=== PATIENT | female | born 2000 | race African-American/Black ===

== ENCOUNTER 2019-03-26 09:12 | Emergency (ER) | payer OTHER ==
[2019-03-26] MEDS ORDERED: ALBUTEROL NEBULIZED 2.5 MG/3 ML INHALATION STA (09:22)
[2019-03-26] MEDS ORDERED: predniSONE 20 MG TAB PO STA (09:22)
[2019-03-26] MEDS ORDERED: ALBUTEROL NEBULIZED (CONC) 5 MG, SODIUM CHLORIDE 0.9% NEBULIZ 3 ML INHALATION STA ×2 (09:30)
[2019-03-26] MEDS ORDERED: ACETAMINOPHEN TAB 325 MG TAB PO STA (09:30)
[2019-03-26] MEDS ORDERED: SODIUM CHLORIDE 0.9% 1,000 ML IV ONE (09:30)
--- NOTE | 2019-03-26 10:12 | XR ---
EXAMINATION TYPE: XR chest 2V DATE OF EXAM ORDERED: 03/26/2019 HISTORY: URI symptoms asthma. REFERENCE: None. FINDINGS: The lungs are clear. Pleural spaces are clear. Heart size is normal. IMPRESSION: NORMAL CHEST.
--- NOTE | 2019-03-26 11:19 | ED ---
General Adult HPI - General Chief complaint: Shortness of Breath Stated complaint: Sob Time Seen by Provider: 03/26/19 09:22 Source: patient Mode of arrival: ambulatory - History of Present Illness Initial comments: 19-year-old female with history of asthma presenting for 1 day of sore throat cough fever. Patient states she has flulike symptoms for one day she states she has had a fever cough sore throat. Patient states when she coughs hard she has pain in her chest. Patient denies any pain in the chest with absence of cough. Patient denies any wheezing but states she has some slight shortness of breath she states she is not sure if this is aggravating her asthma which she has no history of. Patient states she does not have a home inhaler. Patient denies any leg swelling she denies , denies neck stiffness, headache or photophobia. Patient states she recently traveled to [place] via personal vehicle, driving no further than 1 hour. Patient denies hx DVT/PE, hx of cancer, history of exogenous hormone use or history of asplenia. Patient denies diarrhea, abdominal pain or vomiting. Patient denies hemoptysis. Remaining ROS (-) Upon arrival patient appears well, feels warm to touch and is febrile. HR noted to be elevated. - Related Data Previous Rx's Medication Instructions Recorded Azithromycin [Zithromax Z-pack] 0 mg PO DIRECTED #6 tab 03/26/19 predniSONE 20 mg PO DAILY 4 Days #4 tab 03/26/19 Allergies Allergy/AdvReac Type Severity Reaction Status Date / Time No Known Allergies Allergy Verified 03/26/19 11:32 Review of Systems ROS Statement: Those systems with pertinent positive or pertinent negative responses have been documented in the HPI. ROS Other: All systems not noted in ROS Statement are negative. Past Medical History Past Medical History: Asthma History of Any Multi-Drug Resistant Organisms: None Reported Past Surgical History: No Surgical Hx Reported Past Psychological History: No Psychological Hx Reported Smoking Status: Never smoker Past Alcohol Use History: Rare Past Drug Use History: None Reported General Exam - General Exam Comments Initial Comments: General: The patient is awake and alert, in no distress, and does not appear acutely ill. Eye: +3 mm pupils are equal, round and reactive to light, extra-ocular movements are intact. No nystagmus. There is normal conjunctiva bilaterally. No signs of icterus. No photophobia Ears, nose, mouth and throat: There are moist mucous membranes and no oral lesions. Oropharynx was not erythematous there is no tonsillar enlargement exudates or lesions. Uvula midline. Tympanic membranes are not erythematous or is no effusions bulging or retraction. No tenderness to palpation of the mastoid. No anterior cervical lymphadenopathy. Rhinorrhea, clear and bilateral nares. No tripoding, no drooling. Neck: The neck is supple, there is no tenderness or JVD. No nuchal rigidity Cardiovascular: There is a regular rate and rhythm. No murmur, rub or gallop is appreciated. Respiratory: Lungs are clear to auscultation, respirations are non-labored, breath sounds are equal. No wheezes, stridor, rales, or rhonchi. No re tractions or abdominal breathing. Gastrointestinal: Soft, non-distended, non-tender abdomen without masses or organomegaly noted. There is no rebound or guarding present. Bowel sounds are unremarkable. Musculoskeletal: Normal ROM, no tenderness. Strength 5/5. Sensation intact. Radial pulses equal bilaterally 2+. Neurological: A&O x 3. CN II-XII intact grossly, There are no obvious motor or sensory deficits. Coordination appears grossly intact. Speech appears normal, no muffling. Skin: Skin is warm and dry and no rashes or lesions are noted. No extremity edema Psychiatric: Cooperative Course Vital Signs 03/26/19 03/26/19 03/26/19 09:15 10:02 10:04 Temperature 99.2 F 99.1 F Pulse Rate 115 H 72 Respiratory 18 Rate Blood Pressure 137/89 O2 Sat by Pulse 98 Oximetry 03/26/19 03/26/19 03/26/19 10:12 10:37 12:09 Temperature 99.4 F Pulse Rate 72 119 H 92 Respiratory 22 18 Rate Blood Pressure 124/70 110/68 O2 Sat by Pulse 100 100 Oximetry 03/26/19 13:51 Temperature 98.7 F Pulse Rate 108 H Respiratory 16 Rate Blood Pressure 113/79 O2 Sat by Pulse Oximetry EKG Findings - EKG Comments: EKG Findings:: Ventricular rate of 11 beats minute, DE interval 126 ms, QRS ratio 86 ms, QT/QTC 322/437 ms. This is sinus tachycardia with nonspecific T- wave abnormality. No ST elevation noted. EKG was person interpreted and reviewed by my attending provider Dr. Szymanski Medical Decision Making - Medical Decision Making Well-appearing 19-year-old female presenting for cough congestion sore throat shortness of breath. Patient has history of asthma. Patient has slightly diminished air movement on exam no significant wheezing on inspiration nor expiration. Patient does not appears overtly short of breath. Patient oropharynx is mildly erythematous. Uvula midline. No exudates, rapid strep (-). CXR clear of focal exudates, obvious upper respiratory symptoms on exam including a dry cough. Patient EKG nonspecific findings. No chest pain at rest. Troponin (-). Patient has no signs of fluid overload or murmu on exam. Dimer WNL. Mild leukocytosis. Patient upon reevaluation is stating she is feelign better reques ting discharge. I feel at this time most likely ddx is upper repsiratory infection. Patient will be discharged with oral steroids. Patient discharged appearing well, nontoxic after discussing case and reviewing laboratory studies/EKG with my attending provider. I did give patient follow up primary c are provider in 24-48 hours patient verbalized understanding. I was not notified of elevated HR of 108 on discharge. - Lab Data Result diagrams: 03/26/19 09:45 03/26/19 09:45 Lab Results 03/26/19 03/26/19 03/26/19 Range/Units 09:45 09:45 09:45 WBC 12.9 H (4.0-11.0) k/uL RBC 5.17 (3.80-5.40) m/uL Hgb 15.5 (11.4-16.0) gm/dL Hct 43.5 (34.0-46.0) % MCV 84.1 (80.0-100.0) fL MCH 30.0 (25.0-35.0) pg MCHC 35.7 (31.0-37.0) g/dL RDW 12.9 (11.5-15.5) % Plt Count 283 (150-450) k/uL Neutrophils % 80 % Lymphocytes % 9 % Monocytes % 7 % Eosinophils % 2 % Basophils % 0 % Neutrophils # 10.4 H (1.3-7.7) k/uL Lymphocytes # 1.2 (1.0-4.8) k/uL Monocytes # 1.0 (0-1.0) k/uL Eosinophils # 0.2 (0-0.7) k/uL Basophils # 0.1 (0-0.2) k/uL D-Dimer (<0.60) mg/L FEU Sodium (137-145) mmol/L Potassium (3.5-5.1) mmol/L Chloride (98-107) mmol/L Carbon Dioxide (22-30) mmol/L Anion Gap mmol/L BUN (7-17) mg/dL Creatinine (0.52-1.04) mg/dL Est GFR (CKD-EPI)AfAm (>60 ml/min/1.73 sqM) Est GFR (CKD-EPI)NonAf (>60 ml/min/1.73 sqM) Glucose (74-99) mg/dL Calcium (8.4-10.2) mg/dL Total Bilirubin (0.2-1.3) mg/dL AST (14-36) U/L ALT (9-52) U/L Alkaline Phosphatase (38-126) U/L Troponin I (0.000-0.034) ng/mL Total Protein (6.3-8.2) g/dL Albumin (3.5-5.0) g/dL Influenza Type A RNA Not Detected (Not Detectd) Influenza Type B (PCR) Not Detected (Not Detectd) Group A Strep Rapid Negative (Negative) 03/26/19 03/26/19 03/26/19 Range/Units 09:45 09:45 12:30 WBC (4.0-11.0) k/uL RBC (3.80-5.40) m/uL Hgb (11.4-16.0) gm/dL Hct (34.0-46.0) % MCV (80.0-100.0) fL MCH (25.0-35.0) pg MCHC (31.0-37.0) g/dL RDW (11.5-15.5) % Plt Count (150-450) k/uL Neutrophils % % Lymphocytes % % Monocytes % % Eosinophils % % Basophils % % Neutrophils # (1.3-7.7) k/uL Lymphocytes # (1.0-4.8) k/uL Monocytes # (0-1.0) k/uL Eosinophils # (0-0.7) k/uL Basophils # (0-0.2) k/uL D-Dimer 0.33 (<0.60) mg/L FEU Sodium 143 (137-145) mmol/L Potassium 3.8 (3.5-5.1) mmol/L Chloride 107 (98-107) mmol/L Carbon Dioxide 22 (22-30) mmol/L Anion Gap 14 mmol/L BUN 9 (7-17) mg/dL Creatinine 0.72 (0.52-1.04) mg/dL Est GFR (CKD-EPI)AfAm >90 (>60 ml/min/1.73 sqM) Est GFR (CKD-EPI)NonAf >90 (>60 ml/min/1.73 sqM) Glucose 85 (74-99) mg/dL Calcium 10.2 (8.4-10.2) mg/dL Total Bilirubin 0.7 (0.2-1.3) mg/dL AST 30 (14-36) U/L ALT 22 (9-52) U/L Alkaline Phosphatase 110 (38-126) U/L Troponin I <0.012 (0.000-0.034) ng/mL Total Protein 8.0 (6.3-8.2) g/dL Albumin 5.0 (3.5-5.0) g/dL Influenza Type A RNA (Not Detectd) Influenza Type B (PCR) (Not Detectd) Group A Strep Rapid (Negative) Disposition Clinical Impression: Upper respiratory infection, Cough, Fever Disposition: HOME SELF-CARE Condition: Good Instructions (If sedation given, give patient instructions): Upper Respiratory Infection (ED) Additional Instructions: Please use medication as discussed. Please follow-up with family doctor in the next 2 days.. Please return to emergency room if the symptoms increase or worsen or for any other concerns. Prescriptions: predniSONE 20 mg PO DAILY 4 Days #4 tab Azithromycin [Zithromax Z-pack] 0 mg PO DIRECTED #6 tab Is patient prescribed a controlled substance at d/c from ED?: No Referrals: None,Stated [Primary Care Provider] - 1-2 days Time of Disposition: 13:36
[2019-03-26] MEDS ORDERED: KETOROLAC 30 MG/ML 1 ML VIAL IVP STA (11:44)
[2019-03-26 11:51] LABS: Basophils # (A) 0.1 k/uL (0-0.2); Basophils % (A) 0 %; Eosinophils # (A) 0.2 k/uL (0-0.7); Eosinophils % (A) 2 %; HCT 43.5 % (34.0-46.0); HGB 15.5 gm/dL (11.4-16.0); Lymphocytes # (A) 1.2 k/uL (1.0-4.8); Lymphocytes % (A) 9 %; MCHC 35.7 g/dL (31.0-37.0); MCV 84.1 fL (80.0-100.0); Mean Platelet Volume 6.3; Monocytes % (A) 7 %; Neutrophils # (A) 10.4 k/uL (1.3-7.7); Neutrophils % (A) 80 %; Platelet Count 283 k/uL (150-450); RBC 5.17 m/uL (3.80-5.40); RDW 12.9 % (11.5-15.5); WBC 12.9 k/uL (4.0-11.0)
[2019-03-26 11:56] LABS: ALT 22 U/L (9-52); AST 30 U/L (14-36); African American GFR (CKD) >90 (>60 ml/min/1.73 sqM); Alkaline Phosphatase 110 U/L (38-126); Anion Gap 14 mmol/L; Blood Urea Nitrogen 9 mg/dL (7-17); Calcium 10.2 mg/dL (8.4-10.2); Carbon Dioxide 22 mmol/L (22-30); Chloride 107 mmol/L (98-107); Glucose 85 mg/dL (74-99); Potassium 3.8 mmol/L (3.5-5.1); Sodium 143 mmol/L (137-145); Total Bilirubin 0.7 mg/dL (0.2-1.3)
[2019-03-26 13:53] VITALS: BP 113/79; PULSE 108; RESP 16; TEMP 98.7
== END 2019-03-26 13:51 | disposition home or self-care (01) ==
LOC: EC 09:12
DX: J06.9 Acute upper respiratory infection, unspecified (principal); D72.829 Elevated white blood cell count, unspecified; Z87.09 Personal history of other diseases of the respiratory system
CPT/HCPCS: 36415; 94640; 93005; 85379; 80053; 84484; 85025; 87081; 87430; 87502; 71046; 99285; 96374; 96361 ×4; J1885; J7512

== ENCOUNTER 2020-03-05 03:55 | Emergency (ER) | payer OTHER ==
[2020-03-05 04:23] VITALS: BP 141/96; RESP 18; TEMP 98.5
--- NOTE | 2020-03-05 04:27 | ED ---
Asthma HPI - General Stated Complaint: ANAY Time Seen by Provider: 03/05/20 04:19 Source: patient Mode of arrival: ambulatory - History of Present Illness Initial Comments: Kely is a 20-year-old female with a history of asthma who presents the ER today for evaluation of wheezing and shortness of breath. Patient reports that she hasn't required treatment for her asthma since middle school however over the past few days she feels that she is wheezing can catch her breath. She denies any fever or cough. She denies any known exposure COVID 19. Does not have an inhaler or breathing treatments at home which prompted her to come to ER for treatment. - Related Data Previous Rx's Medication Instructions Recorded Azithromycin [Zithromax Z-pack] 0 mg PO DIRECTED #6 tab 03/26/19 predniSONE [Deltasone] 20 mg PO DAILY 4 Days #4 tab 03/26/19 Albuterol Inhaler [Ventolin Hfa 1 puff INHALATION RT-TID #1 unit 03/05/20 Inhaler] Allergies Allergy/AdvReac Type Severity Reaction Status Date / Time No Known Allergies Allergy Verified 03/26/19 11:32 Review of Systems ROS Statement: Those systems with pertinent positive or pertinent negative responses have been documented in the HPI. ROS Other: All systems not noted in ROS Statement are negative. Past Medical History Past Medical History: Asthma History of Any Multi-Drug Resistant Organisms: None Reported Past Surgical History: No Surgical Hx Reported Past Psychological History: No Psychological Hx Reported Smoking Status: Vaper Past Alcohol Use History: Occasional Past Drug Use History: None Reported General Exam - General Exam Comments Initial Comments: Physical Exam GENERAL: Patient is well-developed and well-nourished. Patient is nontoxic and well- hydrated and is in no distress. HENT: Normocephalic, Atraumatic. EYES: PERRL, EOMI PULMONARY: Mild expiratory wheezing more pronounced on right than left CARDIOVASCULAR: There is a regular rate and rhythm without any murmurs gallops or rubs. ABDOMEN: Soft and nontender with normal bowel sounds. SKIN: Skin is clear with no lesions or rashes and otherwise unremarkable. : Deferred NEUROLOGIC: Patient is alert and oriented x3. Moving all extremities spontaneously MUSCULOSKELETAL: Normal extremities with adequate strength and full range of motion. No lower extremity swelling or edema. No calf tenderness. PSYCHIATRIC: Normal psychiatric evaluation. Course Vital Signs 03/05/20 03/05/20 03/05/20 04:17 05:08 05:21 Temperature 98.5 F Pulse Rate 71 85 85 Respiratory 18 Rate Blood Pressure 141/96 O2 Sat by Pulse 100 Oximetry Medical Decision Making - Medical Decision Making Patient was seen and evaluated history is obtained from the patient Breathing treatment was ordered and administered Chest x-ray was obtained and was negative for any acute pathology Until the 19th swab was ordered patient was advised that she will receive notification if it is positive Disposition Clinical Impression: Asthma Disposition: HOME SELF-CARE Condition: Stable Instructions (If sedation given, give patient instructions): Asthma (ED) Additional Instructions: Your COVID 19 test should result in 3-5 days Return to the ER if you have any worsening shortness of breath or new symptoms Prescriptions: Albuterol Inhaler [Ventolin Hfa Inhaler] 1 puff INHALATION RT-TID #1 unit Is patient prescribed a controlled substance at d/c from ED?: No Referrals: None,Stated [Primary Care Provider] - 1-2 days
[2020-03-05] MEDS ORDERED: ALBUTEROL NEBULIZED 2.5 MG/3 ML INHALATION STA (04:32)
[2020-03-05 05:11] VITALS: PULSE 85
--- NOTE | 2020-03-05 05:11 | XR ---
EXAMINATION TYPE: XR chest 2V DATE OF EXAM: 03/05/2020 COMPARISON: 03/18/2019 HISTORY: Short of breath TECHNIQUE: FINDINGS: Heart and mediastinum are normal. Lungs are clear. Diaphragm is normal. There is no pleural effusion or pneumothorax. Bony thorax appears normal. IMPRESSION: Normal chest. No change.
== END 2020-03-05 05:45 | disposition home or self-care (01) ==
LOC: EC 03:55
DX: J45.909 Unspecified asthma, uncomplicated (principal); Z32.02 Encounter for pregnancy test, result negative; F17.290 Nicotine dependence, other tobacco product, uncomplicated
CPT/HCPCS: 94640; 71046; 99285; U0003